=== PATIENT | male | born 1990 | race Caucasian/White ===

== ENCOUNTER 2019-02-03 16:12 | Emergency (ER) | payer MEDICAID ==
[~2019-02-03] VITALS: Ht 185.4 cm; Wt 68.0 kg
[2019-02-03 16:12] VITALS: BP_SYST 118
--- NOTE | 2019-02-03 16:12 | NUR ---
BROUGHT IN BY [facility] AND [facility]ACED IN BED #3, TRIAGED, REPORT GIVEN TO LYUDMILA
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
--- NOTE | 2019-02-03 16:25 | NUR ---
PT taken to radiology via [facility].
[2019-02-03] MEDS ORDERED: KETOROLAC TROMETHAMINE 60 MG/2 ML VIAL IM ONE (16:30)
[2019-02-03] MEDS ORDERED: DIPH-TET-PERTUS Vaccine 0.5 ML VIAL (ADACEL) I.M. ONE (16:30)
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
--- NOTE | 2019-02-03 19:19 | NUR ---
Patient given written and verbal discharge instructions and verbalizes understanding. ER MD discussed with patient the results and treatment provided. Patient in stable condition. ID arm band removed. Rx of Motrin given. Patient educated on pain management and to follow up with PMD. Pain Scale 0. Opportunity for questions provided and answered. Medication side effect fact sheet provided. Pt instructed to wait in ED for PD to take statement.
[2019-02-03 19:45] VITALS: BP_SYST 122
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
== END 2019-02-03 19:45 | disposition home or self-care (01) ==
LOC: SED 16:12
DX: S92.334A Nondisplaced fracture of third metatarsal bone, right foot, initial encounter for closed fracture (principal); S05.91XA Unspecified injury of right eye and orbit, initial encounter; W01.0XXA Fall on same level from slipping, tripping and stumbling without subsequent striking against object, initial encounter; Y93.89 Activity, other specified; Y92.89 Other specified places as the place of occurrence of the external cause; Y99.8 Other external cause status
CPT/HCPCS: 29515; 70486; 73630; 90471; 90715; 96372; 99284; J1885

== ENCOUNTER 2019-04-08 02:36 | Emergency (ER) | payer MEDICAID ==
[~2019-04-08] VITALS: Ht 182.9 cm; Wt 65.8 kg
[2019-04-08 03:00] VITALS: BP_SYST 134
[2019-04-08 06:00] VITALS: BP_SYST 130
== END 2019-04-08 06:00 | disposition home or self-care (01) ==
LOC: SED 02:36
DX: S63.592A Other specified sprain of left wrist, initial encounter (principal); V00.131A Fall from skateboard, initial encounter; Y93.51 Activity, roller skating (inline) and skateboarding; Y92.89 Other specified places as the place of occurrence of the external cause; Y99.8 Other external cause status
CPT/HCPCS: 99283

== ENCOUNTER 2019-04-21 05:54 | Emergency (ER) | payer MEDICAID ==
[~2019-04-21] VITALS: Ht 182.9 cm; Wt 70.3 kg
--- NOTE | 2019-04-21 05:57 | NUR ---
Patient to ER chair to gown for evaluation. Side rails up. Report given to Jorge HERRERA.
[2019-04-21 05:58] VITALS: BP_SYST 131
--- NOTE | 2019-04-21 05:58 | NUR ---
ER at bedside examining patient.
--- NOTE | 2019-04-21 06:08 | NUR ---
Patient given written and verbal discharge instructions and verbalizes understanding. ER MD discussed with patient the results and treatment provided. Patient in stable condition. ID arm band removed. NO Rx given. Patient educated on pain management and to follow up with PMD. Pain Scale 2/10. Opportunity for questions provided and answered. Medication side effect fact sheet provided.
[2019-04-21 06:10] VITALS: BP_SYST 129
== END 2019-04-21 06:08 ==
LOC: SED 05:54
DX: F15.10 Other stimulant abuse, uncomplicated (principal); F17.210 Nicotine dependence, cigarettes, uncomplicated; Z59.0 Homelessness; Z85.47 Personal history of malignant neoplasm of testis
CPT/HCPCS: 99283